=== PATIENT | female | born 1955 | race Caucasian/White ===

== ENCOUNTER 2017-02-21 06:50 | Emergency (ER) | payer OTHER ==
[2017-02-21 07:01] VITALS: BP 115/60; PULSE 52; TEMP 97.5; BMI 25.0
[2017-02-21] MEDS ORDERED: ACETAMINOPHEN 1000 MG/100 ML VIAL (NON FORMULARY) IVPB ONE (07:20)
[2017-02-21] MEDS ORDERED: ONDANSETRON 4 MG/2 ML VIAL IVPUSH ONE (07:20)
[2017-02-21] MEDS ORDERED: SODIUM CHLORIDE 0.9% 500 ML INFUS.BAG IV ONE (07:20)
[2017-02-21] MEDS ORDERED: ACETAMINOPHEN INJECTION 100 ML IVPB ONE (07:33)
[2017-02-21] MEDS ORDERED: ONDANSETRON 4 MG/2 ML VIAL ONE (07:33)
[2017-02-21 07:37] LABS: BASOPHIL 0.4 % (0-2.0); EOSINOPHIL 1.6 % (0-4.5); MCH 30.7 pg (25.7-33.7); MCHC 33.5 g/dl (32.0-36.0); MEAN CELL VOLUME 91.7 fl (80-96); MEAN PLT VOLUME 8.2 fl (7.5-11.1); NEUTROPHILS 67.4 % (42.8-82.8); PLATELET COUNT 263 K/MM3 (134-434); RDW 12.6 % (11.6-15.6); WHITE BLOOD COUNT 8.6 K/mm3 (4.0-10.8)
--- NOTE | 2017-02-21 07:46 | PDOC ---
History of Present Illness - General Chief Complaint: Pain, Acute Stated Complaint: DIVERTICULITITS Time Seen by Provider: 02/21/17 07:17 - History of Present Illness Initial Comments: 02/21/17 07:47 61-year-old female history of hypertension, hyperlipidemia, multiple episodes of diverticulitis treated with Levaquin and Flagyl presents with 5 days of left lower quadrant pain. The patient reports the pain started in the left lower quadrant 5 days ago and felt like her diverticulitis pain and she started a course of Levaquin and Flagyl. The symptoms improved until yesterday when the patient ate corn which can often be a trigger for her diverticulitis. Since yesterday her left lower quadrant pain has become worse and she has also began to experience nausea as well as abdominal distention. The patient reports many episodes of diverticulitis approximately 2-3 times a year that usually respond to Levaquin and Flagyl. This is the first time that her pain persists despite a course of Levaquin and Flagyl. She also reports subjective fevers and chills as well as sweats. Denies any headaches, chest pain, shortness of breath, urinary symptoms, lower extremity edema, rashes. Past History - Past Medical History Allergies/Adverse Reactions: Allergies Allergy/AdvReac Type Severity Reaction Status Date / Time No Known Allergies Allergy Verified 02/15/16 10:31 Home Medications: Ambulatory Orders Atenolol [Tenormin -] 50 mg PO BID 02/15/16 Multivitamins [Tab-A-Vit -] 1 tab PO DAILY 02/15/16 Cholecalciferol (Vitamin D3) [Vitamin D3] 2,000 unit PO DAILY 02/21/17 Rosuvastatin Calcium [Crestor] 5 mg PO DAILY 02/21/17 Anemia: No Asthma: No Cancer: No Cardiac Disorders: No CVA: No COPD: No CHF: No Dementia: No Diabetes: No GI Disorders: No Disorders: No HTN: Yes Hypercholesterolemia: Yes Liver Disease: No Seizures: No Thyroid Disease: No - Surgical History Abdominal Surgery: Yes (Abdominoplasty) Appendectomy: Yes Cardiac Surgery: No Cholecystectomy: No Lung Surgery: No Neurologic Surgery: No Orthopedic Surgery: No - Psycho/Social/Smoking Cessation Hx Anxiety: No Suicidal Ideation: No Smoking History: Never smoked Hx Alcohol Use: No Drug/Substance Use Hx: No Substance Use Type: None Hx Substance Use Treatment: No Review of Systems - Review of Systems Able to Perform ROS?: Yes Is the patient limited Japanese proficient: No Constitutional: Yes: See HPI HEENTM: No: Symptoms Reported, See HPI, Eye Pain, Blurred Vision, Tearing, Recent change in vision, Double Vision, Cataracts, Ear Pain, Ocular Prothesis, Ear Discharge, Nose Pain, Nose Congestion, Tinnitus, Nose Bleeding, Hearing Loss , Throat Pain, Throat Swelling, Mouth Pain, Dental Problems, Difficulty Swallowing, Mouth Swelling, Other Respiratory: No: Symptoms reported, See HPI, Cough, Orthopnea, Shortness of Breath, SOB with Exertion, SOB at Rest, Stridor, Wheezing, Productive cough, Hemoptysis, Other Cardiac (ROS): No: Symptoms Reported, See HPI, Chest Pain, Edema, Irregular Heart Rate, Lightheadedness, Palpitations, Syncope, Chest Tightness, Other ABD/GI: Yes: See HPI : No: Symptoms Reported, See HPI, Burning, Dysuria, Discharge, Frequency, Flank Pain, Hematuria, Incontinence, Pain, Urgency, Testicular Mass, Testicular Swelling, Lesions, Testicular Pain, Other Musculoskeletal: No: Symptoms Reported, See HPI, Back Pain, Gout, Joint Pain, Joint Swelling, Muscle Pain, Muscle Weakness, Neck Pain, Joint Stiffness, Other Integumentary: No: Symptoms Reported, See HPI, Bruising, Change in Color, Change in Hair/Nails, Dryness, Erythema, Flushing, Lesions, Lumps, Pallor, Pruritus, Rash, Sweating, Other Neurological: No: Symptoms reported, See HPI, Headache, Numbness, Paresthesia, Pre-Existing Deficit, Seizure, Tingling, Tremors, Weakness, Unsteady Gait, Ataxia, Dizziness, Other Psychiatric: No: Anxiety, Depression, Frequent Crying, Stressors, Sleep Pattern Change, Emotional Problems, Mood Swings, Change in Appetite, Other Endocrine: No: Symptoms Reported, See HPI, Excessive Sweating, Flushing, Intolerance to Cold, Intolerance to Heat, Increased Hunger, Increased Thirst, Increased Urine, Unexplained Weight Gain, Unexplained Weight Loss, Change in Weight, Other Hematologic/Lymphatic: No: Symptoms Reported, See HPI, Anemia, Blood Clots, Easy Bleeding, Easy Bruising, Bleeding Diathesis, Lymph Node Abnormalities, Swollen Glands, Other *Physical Exam - Vital Signs Last Vital Signs Temp Pulse Resp BP Pulse Ox 97.5 F L 52 L 16 115/60 97 02/21/17 06:58 02/21/17 06:58 02/21/17 06:58 02/21/17 06:58 02/21/17 06:58 - Physical Exam Comments: 02/21/17 08:02 GENERAL: Awake, alert, and fully oriented, in no acute distress HEAD: No signs of trauma EYES: PERRLA, EOMI, sclera anicteric, conjunctiva clear ENT: Auricles normal inspection, hearing grossly normal, nares patent, oropharynx clear without exudates. Moist mucosa NECK: Normal ROM, supple, no lymphadenopathy, JVD, or masses LUNGS: Breath sounds equal, clear to auscultation bilaterally. No wheezes, and no crackles HEART: Regular rate and rhythm, normal S1 and S2, no murmurs, rubs or gallops ABDOMEN: +LLQ ttp, +mild distention, no guarding, no rebound. No masses EXTREMITIES: Normal range of motion, no edema. No clubbing or cyanosis. No cords, erythema, or tenderness NEUROLOGICAL: Normal speech, cranial nerves intact, negative pronator drift, 5/ 5 strength in all 4 extremities, normal sensation to light touch in all 4 extremities, normal cerebellar exam, normal gait, normal reflexes and tone SKIN: Warm, Dry, normal turgor, no rashes or lesions noted. ED Treatment Course - LABORATORY CBC & Chemistry Diagram: 02/21/17 06:15 02/21/17 06:15 - ADDITIONAL ORDERS Additional order review: 02/21/17 06:15 RBC 3.96 MCV 91.7 MCHC 33.5 RDW 12.6 MPV 8.2 Neutrophils % 67.4 Lymphocytes % 21.4 Monocytes % 9.2 Eosinophils % 1.6 Basophils % 0.4 - RADIOLOGY Radiology Studies Ordered: Category Date Time Status ABDOMEN & PELVIS CT WITH CONTR [CT] Stat CT Scan 02/21/17 07:19 Ordered - Medications Given in the ED: ED Medications Discontinued Medications Generic Name Dose Route Start Last Admin Trade Name Freq PRN Reason Stop Dose Admin Sodium Chloride 1,000 ml 02/21/17 07:20 02/21/17 07:25 Normal Saline - IV 02/21/17 07:21 1,000 ml ONCE ONE Administration Medical Decision Making - Medical Decision Making 02/21/17 08:03 61-year-old female history of diverticulitis presents with 5 days of left lower quadrant pain that initially improved with Levaquin and Flagyl but became worse again for 1 day. Exam with left lower quadrant tenderness and mild distention. Concern for complicated or perforated diverticulitis. Also on ddx renal colic vs colitis. -labs -UA -pain control -antiemetics -CTAP w contrast -IVF -NPO -reassess 02/21/17 10:51 Laboratory Tests 02/21/17 02/21/17 02/21/17 06:15 06:15 06:15 WBC 8.6 RBC 3.96 Hgb 12.2 Hct 36.3 MCV 91.7 MCH 30.7 MCHC 33.5 RDW 12.6 Plt Count 263 MPV 8.2 Neutrophils % 67.4 Lymphocytes % 21.4 Monocytes % 9.2 Eosinophils % 1.6 Basophils % 0.4 INR PTT (Actin FS) 25.3 L Sodium 136 Potassium 3.8 Chloride 102 Carbon Dioxide 24 Anion Gap 10 BUN 15 Creatinine 0.9 D Creat Clearance w eGFR > 60 Random Glucose 121 H D Calcium 9.0 Magnesium 1.7 L Total Bilirubin 0.8 D AST 22 D ALT 14 D Alkaline Phosphatase 57 Total Protein 6.6 Albumin 3.8 Urine Color Urine Appearance Urine pH Ur Specific Bonnie Urine Protein Urine Glucose (UA) Urine Ketones Urine Blood Urine Nitrite Urine Bilirubin Urine Urobilinogen Ur Leukocyte Esterase Urine RBC Urine WBC Ur Epithelial Cells Urine Bacteria 02/21/17 02/21/17 06:15 10:09 WBC RBC Hgb Hct MCV MCH MCHC RDW Plt Count MPV Neutrophils % Lymphocytes % Monocytes % Eosinophils % Basophils % INR 1.12 PTT (Actin FS) Sodium Potassium Chloride Carbon Dioxide Anion Gap BUN Creatinine Creat Clearance w eGFR Random Glucose Calcium Magnesium Total Bilirubin AST ALT Alkaline Phosphatase Total Protein Albumin Urine Color Yellow Urine Appearance Clear Urine pH 5.5 Ur Specific Bonnie 1.010 Urine Protein Negative Urine Glucose (UA) Negative Urine Ketones Negative Urine Blood 2+ H Urine Nitrite Negative Urine Bilirubin Negative Urine Urobilinogen 0.2 Ur Leukocyte Esterase Negative Urine RBC 5-10 Urine WBC 0-3 Ur Epithelial Cells Few Urine Bacteria Moderate Pain well controlled with IV tylenol. CTAP with mild acute diverticulitis. Feels much better. Pt has zofran, levaquin, and flagyl at home. Stable for DC home *DC/Admit/Observation/Transfer Diagnosis at time of Disposition: Diverticulitis Qualifiers: Diverticulitis site: large intestine Diverticulitis bleeding: without bleeding Diverticulitis complication: without perforation or abscess Qualified Code(s): K57.32 - Diverticulitis of large intestine without perforation or abscess without bleeding - Discharge Dispostion Condition at time of disposition: Stable Admit: No - Patient Instructions Additional Instructions: Continue to take the levaquin and flagyl. Follow up with your primary care doctor in 2-3 days. Return to the emergency department immediately for any new or concerning symptoms or if your symptoms get worse It was a pleasure to take care of you today in our emergency department. We hope you feel better soon! - Attestations Physician Attestion: 02/21/17 10:56 I, Dr. Lia Arnold MD, attest that this document has been prepared under my direction and personally reviewed by me in its entirety. I further attest, that it accurately reflects all work, treatment, procedures and medical decision -making performed by me.
[2017-02-21 07:53] LABS: INR 1.12 (0.82-1.09); PROTHROMBIN TIME (PATIENT) 12.5 SEC (10.2-13.0)
[2017-02-21 08:21] LABS: ALBUMIN 3.8 g/dl (3.5-5.0); ALK PHOS 57 U/L (32-92); ANION GAP 10 (8-16); BILIRUBIN,TOTAL 0.8 mg/dl (0.2-1.0); CO2 24 mmol/L (22-28); CREATININE 0.9 mg/dl (0.6-1.3); GLUCOSE,RANDOM 121 mg/dl (74-106); MAGNESIUM 1.7 mg/dL (1.8-2.4); SGOT/AST 22 U/L (10-42); SGPT/ALT 14 U/L (10-40); TOT PROT 6.6 g/dl (6.4-8.3)
[2017-02-21 10:18] LABS: PH,URINE 5.5 (4.5-8); URINE APPEARANCE Clear; URINE BILIRUBIN Negative (NEGATIVE); URINE BLOOD 2+ (NEGATIVE); URINE COLOR YELLOW; URINE GLUCOSE (UA) Negative (NEGATIVE); URINE KETONE Negative (NEGATIVE); URINE LEUK ESTERASE Negative (NEGATIVE); URINE NITRITE Negative (NEGATIVE); URINE PROTEIN Negative (NEGATIVE); URINE UROBILINOGEN 0.2 (0.2-1.0)
[2017-02-21 10:19] LABS: URINE BACTERIA MODERATE /hpf (NEGATIVE); URINE WBC 0-3 (3-5)
== END 2017-02-21 10:59 | disposition home or self-care (01) ==
LOC: FER 06:50
PROC: 3E0337Z Introduction of Electrolytic and Water Balance Substance into Peripheral Vein, Percutaneous Approach (ICD-10-PCS; principal; 2017-02-21)
PROC: 3E033NZ Introduction of Analgesics, Hypnotics, Sedatives into Peripheral Vein, Percutaneous Approach (ICD-10-PCS; 2017-02-21)
PROC: 3E033GC Introduction of Other Therapeutic Substance into Peripheral Vein, Percutaneous Approach (ICD-10-PCS; 2017-02-21)
DX: K57.32 Diverticulitis of large intestine without perforation or abscess without bleeding (principal); E78.5 Hyperlipidemia, unspecified; I10 Essential (primary) hypertension
CPT/HCPCS: 36415; 74177-TC; 80053; 81003; 81015; 83735; 85025; 85610; 85730; 87086; 99282-25

== ENCOUNTER 2024-12-25 22:25 | Emergency (ER) | payer BC, OTHER ==
[2024-12-25 22:29] VITALS: BP 101/53; PULSE 55; RESP 17; TEMP 97.5; BMI 21.3
[2024-12-25] MEDS ORDERED: TOBRA 0.3%/DEXAMETH 0.1% OPHTHALMIC SUSP 2.5 ML BTL ONE (22:31)
[2024-12-25] MEDS: TOBRAMYCIN/DEXAMETHASONE OPHTH. OINTMENT 1 TUBE OS ONE (22:36)
== END 2024-12-25 22:41 | disposition home or self-care (01) ==
LOC: FER 22:25
DX: H10.32 Unspecified acute conjunctivitis, left eye (principal)
CPT/HCPCS: 99283-25